=== PATIENT | male | born 1965 | race Caucasian/White ===

== ENCOUNTER 2016-12-03 14:06 | Emergency (ER) | payer BC ==
[~2016-12-03] VITALS: Ht 182.9 cm; Wt 109.0 kg
[~2016-12-03 14:06] MED LIST: CLC100 PO; LRT5 PO; MAGNSUS5 PO; SENN-65 PO
[2016-12-03 14:09] VITALS: TEMP 37.5; Ht 182.9 cm; Wt 109.0 kg
[2016-12-03] MEDS ORDERED: ACETAMINOPHEN 500 MG TAB PO STA (14:33)
[2016-12-03] MEDS ORDERED: SODIUM CHLORIDE 0.9% 1000ML 1,000 ML IV STA ×2 (14:33→15:26)
[2016-12-03] MEDS ORDERED: ALBUT/IPRATROP 3MG/0.5MG NEB 3 ML VIAL INH ONE (14:45)
[2016-12-03] MEDS ORDERED: ALBUTEROL HFA 8 GM INHALER INH ONE (14:45)
[2016-12-03] MEDS ORDERED: HYDR25TA4 PO (14:48)
[2016-12-03] MEDS ORDERED: DEXT30TA7 PO (14:48)
[2016-12-03] MEDS ORDERED: IRBE1TAB50 PO (14:48)
[2016-12-03] MEDS ORDERED: PSEU60TA80 PO (14:48)
[2016-12-03] MEDS ORDERED: IBUP-1050 PO (14:48)
--- NOTE | 2016-12-03 14:59 | EMERGENCY ROOM VISIT NOTE ---
History Report prepared by Ehsan: Ednison Lane Under the Supervision of: Dr. Rex Bennett M.D. First contact with patient: 14:23 Chief Complaint: ILLNESS Stated Complaint: COUGH,SWEATING,NO APPETITE History of Present Illness The patient is a 51 year old male who presents to the Emergency Room with complaints of worsening weakness that began 5 days prior to arrival. The patient is also complaining of nausea, congestion/tightness in his chest, and a cough. The cough is productive. The patient went to the [place] walk[facility]in [facility] on , three days prior to arrival. They thought the patient had influenza , but he decided to not have the flu test done. He has no personal cardiac history, but does have family history of cardiac issues. The patient has had pneumonia in the past. He took Advil for his symptoms this morning at 0800. Source of History: patient Position: other (Global) Quality: other (Weakness) Timing: worsening Associated Symptoms: + chest pain (TIGHTNESS), + cough, + nausea Review of Systems See HPI for pertinent positives & negatives. A total of 10 systems reviewed and were otherwise negative. Past Medical & Surgical Surgical Problems: (1) Hx of appendectomy (2) Hx of cholecystectomy Family History Diabetes mellitus Hypertension Social History Smoking Status: Never Smoker Marital Status: Housing Status: lives with family Occupation Status: employed Current/Historical Medications Scheduled Hydrochlorothiazide (Hctz), 25 MG PO QAM Irbesartan (Irbesartan), 300 MG PO QAM Oseltamivir Phosphate (Tamiflu), 75 MG PO BID Prednisone (Prednisone Tab), 0 PO DAILY Scheduled PRN Dextromethorphan-Guaifenesin (Mucinex Dm), 1 TAB PO Q4 PRN for Cough Ibuprofen (Advil), 600 MG PO Q4 PRN for Pain or Fever Allergies Coded Allergies: No Known Allergies (Verified , 12/03/16) Physical Exam Vital Signs Date Time Temp Pulse Resp B/P Pulse Ox O2 Delivery O2 Flow Rate FiO2 12/03/16 15:19 66 12 93 Room Air 12/03/16 15:11 70 12/03/16 15:07 95 Room Air 12/03/16 15:07 95 Room Air 12/03/16 15:02 70 125/63 66 132/70 84 111/60 12/03/16 14:09 37.5 80 16 131/79 97 Room Air Physical Exam GENERAL: Patient is a healthy-appearing well-nourished HEAD: Normocephalic atraumatic EYES: Ocular movements intact pupils equal and react to light OROPHARYNX mucous membranes are moist no exudates present no erythema or edema present NECK: Supple no nuchal rigidity CHEST: Good equal expansion LUNGS: Bilateral wheezes at the bases. CARDIAC: Normal S1 and S2 ABDOMEN: Soft nontender no guarding BACK: No CVA tenderness EXTREMITIES: No pain upon palpation normal muscle strength in all groups no clubbing cyanosis or edema NEURO: Patient is following commands is answering questions appropriately. Alert and oriented x3 Cranial Nerves 2-12 grossly intact Medical Decision & Procedures ER Provider Diagnostic Interpretation: Radiology results as stated below per my review and radiologist interpretation: SINGLE VIEW CHEST CLINICAL HISTORY: Wheezing. FINDINGS: An AP, portable, upright chest radiograph is compared to study dated 06/06/2010 and correlated with chest CT dated 06/07/2010. The examination is degraded by portable technique and apical lordotic positioning. The heart is top normal for projection. The mediastinal contour is within normal limits. There are foci of bibasilar atelectasis. No airspace consolidation is seen typical for pneumonia and there is no large pleural effusion. No pneumothorax is seen. The bony thorax is grossly intact. Degenerative change is noted in the thoracic spine. IMPRESSION: Bibasilar atelectasis with no acute cardiopulmonary abnormality. Electronically signed by: Du Perez M.D. 12/03/2016 3:20 PM Dictated Date/Time: 12/03/2016 3:19 PM Laboratory Results 12/03/16 14:52 Red Blood Count 4.78, Mean Corpuscular Volume 86.8, Mean Corpuscular Hemoglobin 30.3, Mean Corpuscular Hemoglobin Concent 34.9, Mean Platelet Volume 9.3, Neutrophils (%) (Auto) 68.1, Lymphocytes (%) (Auto) 19.9, Monocytes (%) (Auto) 10.6, Eosinophils (%) (Auto) 0.8, Basophils (%) (Auto) 0.3, Neutrophils # (Auto ) 2.71, Lymphocytes # (Auto) 0.79, Monocytes # (Auto) 0.42, Eosinophils # (Auto ) 0.03, Basophils # (Auto) 0.01 12/03/16 14:52 Test 12/03/16 14:50 12/03/16 14:52 12/03/16 15:11 Influenza Type A Antigen Neg for Influ A (NEG) Influenza Type B Antigen POS for Influ B (NEG) White Blood Count 3.97 K/uL (4.8-10.8) Red Blood Count 4.78 M/uL (4.7-6.1) Hemoglobin 14.5 g/dL (14.0-18.0) Hematocrit 41.5 % (42-52) Mean Corpuscular Volume 86.8 fL (80-100) Mean Corpuscular Hemoglobin 30.3 pg (25-34) Mean Corpuscular Hemoglobin Concent 34.9 g/dl (32-36) Platelet Count 167 K/uL (130-400) Mean Platelet Volume 9.3 fL (7.4-10.4) Neutrophils (%) (Auto) 68.1 % Lymphocytes (%) (Auto) 19.9 % Monocytes (%) (Auto) 10.6 % Eosinophils (%) (Auto) 0.8 % Basophils (%) (Auto) 0.3 % Neutrophils # (Auto) 2.71 K/uL (1.4-6.5) Lymphocytes # (Auto) 0.79 K/uL (1.2-3.4) Monocytes # (Auto) 0.42 K/uL (0.11-0.59) Eosinophils # (Auto) 0.03 K/uL (0-0.5) Basophils # (Auto) 0.01 K/uL (0-0.2) RDW Standard Deviation 41.2 fL (36.4-46.3) RDW Coefficient of Variation 12.9 % (11.5-14.5) Immature Granulocyte % (Auto) 0.3 % Immature Granulocyte # (Auto) 0.01 K/uL (0.00-0.02) Anion Gap 10.0 mmol/L (3-11) Est Creatinine Clear Calc Drug Dose 64.1 ml/min Estimated GFR () 52.2 Estimated GFR (Non- 45.0 BUN/Creatinine Ratio 16.6 (10-20) Calcium Level 8.8 mg/dl (8.5-10.1) Total Bilirubin 0.5 mg/dl (0.2-1) Direct Bilirubin 0.1 mg/dl (0-0.2) Aspartate Amino Transf (AST/SGOT) 29 U/L (15-37) Alanine Aminotransferase (ALT/SGPT) 54 U/L (12-78) Alkaline Phosphatase 61 U/L (45-117) Troponin I < 0.015 ng/ml (0-0.045) Total Protein 7.5 gm/dl (6.4-8.2) Albumin 3.8 gm/dl (3.4-5.0) Thyroid Stimulating Hormone (TSH) 5.180 uIu/ml (0.300-4.500) Urine Color YELLOW Urine Appearance CLOUDY (CLEAR) Urine pH 5.0 (4.5-7.5) Urine Specific Dewitt 1.011 (1.000-1.030) Urine Protein NEG (NEG) Urine Glucose (UA) NEG (NEG) Urine Ketones NEG (NEG) Urine Occult Blood NEG (NEG) Urine Nitrite NEG (NEG) Urine Bilirubin NEG (NEG) Urine Urobilinogen NEG (NEG) Urine Leukocyte Esterase NEG (NEG) Urine WBC (Auto) 5-10 /hpf (0-5) Urine RBC (Auto) 0-4 /hpf (0-4) Urine Hyaline Casts (Auto) 5-10 /lpf (0-5) Urine Epithelial Cells (Auto) >30 /lpf (0-5) Urine Bacteria (Auto) NEG (NEG) Urine Renal Epithelial Cells 0-5 /lpf (0-5) Urine Pathogenic Casts 0-3 WBC CASTS /lpf (0) Labs reviewed by ED physician. Medications Administered Medications (Trade) Dose Ordered Sig/Kunal Route Start Time Stop Time Status Last Admin Dose Admin Albuterol/ Ipratropium 12 ml 12 ml ONE ONCE INH 12/03/16 14:45 12/03/16 14:46 DC 12/03/16 15:18 12 ML Sodium Chloride (Nss 1000ml) 1,000 ml @ 999 mls/hr Q1H1M STAT IV 12/03/16 14:33 12/03/16 15:33 DC 12/03/16 15:01 999 MLS/HR Acetaminophen (Tylenol Tab) 1,000 mg NOW STAT PO 12/03/16 14:33 12/03/16 14:36 DC 12/03/16 15:01 1,000 MG Oseltamivir Phosphate (Tamiflu Cap) 75 mg NOW STAT PO 12/03/16 15:26 12/03/16 15:27 DC 12/03/16 15:26 75 MG Methylprednisolone Sodium Succinate (Solu-Medrol IV) 60 mg NOW STAT IV 12/03/16 15:29 12/03/16 15:30 DC 12/03/16 15:37 60 MG ECG Indication: weakness Rate (beats per minute): 74 Rhythm: normal sinus Findings: T-wave inversion (Lateral), no acute ischemic change, no ectopy ED Course 1429: Past medical records reviewed. The patient was evaluated in room B3. A complete history and physical examination was performed. 1433: Ordered Acetaminophen 1000 mg PO, Sodium Chloride 1000 mL @ 999 mL/hr IV. 1445: Ordered Albuterol 2 puffs INH, Duoneb 12 mL INH. 1526: Ordered Oseltamivir 75 mg PO, Sodium Chloride 1000 mL 2 999 mL/hr IV. 1529: Ordered Solu-Medrol 60 mg IV. 1541: Ordered Toradol 30 mg IV. 1602: Upon reexamination the patient is resting in bed. I discussed results and treatment plan with the patient. He verbalizes agreement and understanding. The patient is ready for discharge. Medical Decision Differential diagnosis: Etiologies such as cardiac ischemia, aortic dissection, pulmonary embolism, pneumonia, pneumothorax, musculoskeletal, infections, pericarditis, myocarditis , esophageal rupture, gastrointestinal, as well as others were entertained. This is a 51-year-old male who has had flulike symptoms for the past 6 days. In addition the patient is wheezing on examination. For this reason the patient was given an hour-long breathing treatment. He does not have an elevation in his white blood count however he did test positive for influenza B. He has no evidence of meningitis encephalitis on examination. Based on the fact that the patient has not been improving I recommended that the patient start Tamiflu however became irate at this recommendation. The patient on prednisone as well as albuterol inhaler twice a day. I also strongly recommended that the patient increase his fluid intake over the next 48 hours. Patient has no evidence of meningitis encephalitis on examination I feel can safely be discharged home. Impression Primary Impression: Influenza B Additional Impression: Dehydration Scribe Attestation The scribe's documentation has been prepared under my direction and personally reviewed by me in its entirety. I confirm that the note above accurately reflects all work, treatment, procedures, and medical decision making performed by me. Departure Information Dispostion Home / Self-Care Prescriptions Oseltamivir Phosphate (Tamiflu) 75 Mg Cap 75 MG PO BID for 5 Days, #10 CAP Prov: Rex Bennett MD 12/03/16 Prednisone (Prednisone Tab) 20 Mg Tab 0 PO DAILY, #7 TAB 2 TABS DAILY FOR 2 DAYS, THEN 1 TAB DAILY FOR 2 DAYS, THEN 1/2 TAB DAILY FOR 2 DAYS. Prov: Rex Bennett MD 12/03/16 Referrals John Nolan M.D. (PCP) Forms HOME CARE DOCUMENTATION FORM, IMPORTANT VISIT INFORMATION, WORK / SCHOOL INSTRUCTIONS Patient Instructions My [facility] Additional Instructions Increase fluid intake next 48 hours Use inhaler twice every 6 hours Take 600 mg Ibuprofen every 6 hours Take 1000 mg Tylenol every 6 hours You have been examined and treated today on an emergency basis only. This is not a substitute for, or an effort to provide, complete comprehensive medical care. It is impossible to recognize and treat all injuries or illnesses in a single emergency department visit. It is therefore important that you follow up closely with [facility]. Call as soon as possible for an appointment. Thank you for your time and consideration. I look forward to speaking with you again soon. Please don't hesitate to call us if you have any questions. Problem Qualifiers
[2016-12-03 15:07] VITALS: O2SAT 95
[2016-12-03 15:09] LABS: BASO % 0.3 %; BASO ABS # 0.01 K/uL (0-0.2); COMPLETE YES; EOS % 0.8 %; HEMATOCRIT 41.5 % (42-52); IG% 0.3 %; LYMPH % 19.9 %; LYMPH ABS # 0.79 K/uL (1.2-3.4); MEAN CELL VOLUME 86.8 fL (80-100); MEAN CORPUSCULAR HEMOGLOBIN 30.3 pg (25-34); MEAN CORPUSCULAR HGB CONC 34.9 g/dl (32-36); MEAN PLATELET VOLUME 9.3 fL (7.4-10.4); MONO % 10.6 %; NEUT % 68.1 %; PLATELET COUNT 167 K/uL (130-400); RED BLOOD COUNT 4.78 M/uL (4.7-6.1); WHITE BLOOD COUNT 3.97 K/uL (4.8-10.8)
[2016-12-03 15:19] VITALS: PULSE 66; O2SAT 93
[2016-12-03 15:19] LABS: ALT/SGPT 54 U/L (12-78); BLOOD UREA NITROGEN 28 mg/dl (7-18); BUN/CREATININE RATIO 16.6 (10-20); CALCIUM 8.8 mg/dl (8.5-10.1); CARBON DIOXIDE 30 mmol/L (21-32); CHLORIDE 98 mmol/L (98-107); GLUCOSE 99 mg/dl (70-99); POTASSIUM 3.6 mmol/L (3.5-5.1); SODIUM 138 mmol/L (136-145)
--- NOTE | 2016-12-03 15:22 | DIAGNOSTIC IMAGING REPORT ---
SINGLE VIEW CHEST CLINICAL HISTORY: Wheezing. FINDINGS: An AP, portable, upright chest radiograph is compared to study dated 06/06/2010 and correlated with chest CT dated 06/07/2010. The examination is degraded by portable technique and apical lordotic positioning. The heart is top normal for projection. The mediastinal contour is within normal limits. There are foci of bibasilar atelectasis. No airspace consolidation is seen typical for pneumonia and there is no large pleural effusion. No pneumothorax is seen. The bony thorax is grossly intact. Degenerative change is noted in the thoracic spine. IMPRESSION: Bibasilar atelectasis with no acute cardiopulmonary abnormality. Electronically signed by: Du Perez M.D. 12/03/2016 3:20 PM Dictated Date/Time: 12/03/2016 3:19 PM
[2016-12-03] MEDS ORDERED: OSELTAMIVIR PHOSPHATE 75 MG CAP PO STA (15:26)
[2016-12-03] MEDS ORDERED: METHYLPREDNISOLONE 125 MG VIAL IV STA (15:29)
[2016-12-03 15:30] LABS: ALKALINE PHOSPHATASE 61 U/L (45-117); AST/SGOT 29 U/L (15-37)
[2016-12-03 15:34] LABS: URINE APPEARANCE CLOUDY (CLEAR); URINE BILIRUBIN NEG (NEG); URINE COLOR YELLOW; URINE EPITHELIAL CELL AUTO >30 /lpf (0-5); URINE NITRITE NEG (NEG); URINE SPECIFIC GRAVITY 1.011 (1.000-1.030); UROBILINOGEN NEG (NEG)
[2016-12-03 15:35] LABS: MANUAL MICROSCOPIC REQUIRED? NO; REVIEW REQ? YES
[2016-12-03] MEDS ORDERED: NF406 PO (15:36)
[2016-12-03] MEDS ORDERED: PRED20TA2 PO (15:36)
[2016-12-03] MEDS ORDERED: KETOROLAC TROMETHAMINE 30 MG/ML VIAL IV STA (15:40)
[2016-12-03 15:48] LABS: URINE PATH CASTS 0-3 WBC CASTS /lpf (0)
[2016-12-03 17:25] VITALS: BP 135/67; PULSE 81; O2SAT 94
== END 2016-12-03 17:38 | disposition home or self-care (01) ==
LOC: C.EDB 14:07
DX: J10.1 Influenza due to other identified influenza virus with other respiratory manifestations (principal); E86.0 Dehydration; R06.2 Wheezing; Z82.49 Family history of ischemic heart disease and other diseases of the circulatory system; Z83.3 Family history of diabetes mellitus

== ENCOUNTER → 2017-05-29 | Outpatient (CLI) | payer BC ==
[~2017-05-29] MED LIST changes: -CLC100 PO; +DEXT30TA7 PO; +HYDR25TA4 PO; +IBUP-1050 PO; +IRBE1TAB50 PO; -LRT5 PO; -MAGNSUS5 PO; +PRED20TA2 PO; -SENN-65 PO
--- NOTE | 2017-05-29 14:45 | DIAGNOSTIC IMAGING REPORT ---
LEFT KNEE 3 VIEWS HISTORY: KNEE PAIN, LEFT COMPARISON: None. FINDINGS: There is no fracture or dislocation. Mild prepatellar soft tissue swelling. Small to moderate knee effusion. Mild cartilage space narrowing within the medial compartment of the left knee consistent with degenerative change. No radiopaque foreign bodies. IMPRESSION: Mild prepatellar soft tissue swelling and a small to moderate knee effusion. No fractures. Electronically signed by: Ashish Neil M.D. 05/29/2017 2:43 PM Dictated Date/Time: 05/29/2017 2:42 PM
== END | disposition home or self-care (01) ==
LOC: C.RAD1850 14:13
PROVIDERS: ATTEND Internal Medicine
DX: M25.562 Pain in left knee (principal)

== ENCOUNTER → 2017-05-29 | Outpatient (CLI) | payer BC ==
[2017-05-29 17:56] LABS: BASO % 0.2 %; BASO ABS # 0.01 K/uL (0-0.2); COMPLETE YES; EOS % 3.8 %; HEMATOCRIT 42.4 % (42-52); LYMPH % 22.8 %; LYMPH ABS # 0.95 K/uL (1.2-3.4); MEAN CORPUSCULAR HEMOGLOBIN 29.1 pg (25-34); MEAN CORPUSCULAR HGB CONC 32.3 g/dl (32-36); MEAN PLATELET VOLUME 9.5 fL (7.4-10.4); MONO % 14.2 %; PLATELET COUNT 194 K/uL (130-400); RED BLOOD COUNT 4.71 M/uL (4.7-6.1); WHITE BLOOD COUNT 4.16 K/uL (4.8-10.8)
[2017-05-29 18:21] LABS: BLOOD UREA NITROGEN 14 mg/dl (7-18); BUN/CREATININE RATIO 14.8 (10-20); C-REACTIVE PROTEIN 0.35 mg/dl (0-0.29); CALCIUM 9.3 mg/dl (8.5-10.1); CARBON DIOXIDE 31 mmol/L (21-32); CHLORIDE 102 mmol/L (98-107); CREATININE 0.92 mg/dl (0.60-1.40); GLUCOSE 86 mg/dl (70-99); POTASSIUM 4.1 mmol/L (3.5-5.1); SODIUM 139 mmol/L (136-145)
[2017-05-29 18:44] LABS: LYME DISEASE AB IGG NEG (NEG); LYME DISEASE AB IGM NEG (NEG)
== END | disposition home or self-care (01) ==
LOC: C.LABBFT 12:18
PROVIDERS: ATTEND Internal Medicine
DX: R79.89 Other specified abnormal findings of blood chemistry (principal); M25.562 Pain in left knee

== ENCOUNTER → 2017-06-06 | Outpatient (CLI) | payer BC ==
[~2017-06-06] MED LIST changes: -PRED20TA2 PO
[2017-06-06 19:56] LABS: SYNOVIAL FLUID APPEARANCE CLEAR; SYNOVIAL FLUID COLOR YELLOW; SYNOVIAL FLUID MONONUC RELAT 83.5 %; SYNOVIAL FLUID POLYNUC RELAT 16.5 %
[2017-06-09 11:34] LABS: LYME DNA PCR CSF OR SYNOVIAL Not detected (Not Detected); LYME DNA SOURCE Synovial Fluid
== END | disposition home or self-care (01) ==
LOC: C.LABSPEC 17:08
PROVIDERS: ATTEND Internal Medicine Rheumatology
DX: M25.462 Effusion, left knee (principal)